=== PATIENT | female | born 1965 | race African-American/Black ===

== ENCOUNTER 2022-06-01 17:18 | Emergency (ER) | payer SELFPAY ==
[2022-06-01] MEDS ORDERED: Morphine 4 MG/ML VIAL ONE (19:06)
[2022-06-01] MEDS ORDERED: Ketorolac Tromethamine 30 MG/ML VIAL ONE (19:07)
== END 2022-06-01 19:28 | disposition home or self-care (01) ==
LOC: CSHERS 17:18
DX: M54.50 Low back pain, unspecified (principal); I10 Essential (primary) hypertension; M10.9 Gout, unspecified
CPT/HCPCS: 72148; 96374; 96375; J1885; J2270